=== PATIENT | female | born 1965 | race Caucasian/White ===

== ENCOUNTER → 2020-08-10 | Outpatient (CLI) | payer OTHER ==
--- NOTE | 2020-08-10 12:54 | Diagnostic Imaging Report ---
Bilateral fingers Indication: Bilateral thumb pain 3 views of each thumb were obtained. There are no prior studies available for comparison. There is no fracture, dislocation or acute bony abnormality evident. The osseous structures seen well mineralized and there is no significant degenerative disease of the metacarpophalangeal or the interphalangeal joints of the thumb. There is mild degenerative disease of the triscaphe joints and the radiocarpal joints. The soft tissues are unremarkable. IMPRESSION: 1. There is no evidence for an acute bony abnormality. 2. There does not appear to be any significant arthritic change involving the thumbs. There is mild degenerative disease of the triscaphe and radiocarpal joints however. Dictated by: Dictated on workstation # [id number]
== END ==
LOC: RAD FS 08:32
PROVIDERS: ATTEND Nurse Practitioner
DX: M79.644 Pain in right finger(s) (principal); M79.645 Pain in left finger(s)

== ENCOUNTER 2021-01-31 21:27 | Emergency (ER) | payer OTHER ==
[~2021-01-31] VITALS: Ht 162.6 cm; Wt 79.4 kg
[2021-01-31 21:40] VITALS: BP 156/77
--- NOTE | 2021-01-31 21:49 | ED Lower Extremity ---
General Chief Complaint: Lower Extremity Stated Complaint: LEFT FOOT INJ Nursing Triage Note: PT AMBULATE TO ROOM FS05 WITH C/O LEFT TOE PAIN AFTER STUBBING TOE AT HOME. PT STATES TOES ARE "POINTING IN THE WRONG DIRECTION". Nursing Sepsis Screen: No Definite Risk Source: patient History of Present Illness Date Seen by Provider: January 31, 2021 Time Seen by Provider: 21:30 Initial Comments 55-year-old female presenting with complaints of left foot and pinky toe pain. She had stubbed her foot and toe against a corn hole board just prior to arrival. She has pain especially in the toe but in the middle of her foot as well. She feels that her pinky toe is angled out more than usual. She denies any numbness or tingling. She is able to walk on the foot but it is painful. She has not taken anything for pain prior to arrival. She denies any other injuries. Onset: just prior to arrival Severity: moderate Pain/Injury Location: left foot, left 5th toe Method of Injury: direct blow (Stubbed foot and toe) Modifying Factors: Worse With Movement Allergies and Home Medications Allergies Coded Allergies: No Known Drug Allergies (Unverified , 01/31/21) Home Medications Hydrocodone/Acetaminophen 1 Each Tablet, 1 TAB PO Q6H PRN for PAIN-SEVERE (8-10) Prescribed by: HERIBERTO PRETTY on 01/31/21 2651 Patient Home Medication List Home Medication List Reviewed: Yes Review of Systems Constitutional: No chills, No fever EENTM: no symptoms reported Respiratory: no symptoms reported Cardiovascular: no symptoms reported Gastrointestinal: no symptoms reported Genitourinary: no symptoms reported Musculoskeletal: see HPI, joint pain (left pinky toe) Skin: No change in color Psychiatric/Neurological: Denies Numbness, Denies Paresthesia Past Nucuipn-Bgzsvd-Hwyrbo Hx Past Med/Social Hx: Reviewed Nursing Past Med/Soc Hx Patient Social History Recent Infectious Disease Expo: No Past Medical History Respiratory: No Cardiac: Yes Hypertension Neurological: No Genitourinary: No Musculoskeletal: No Endocrine: Yes Hypothyroidsim Psychosocial: Yes Anxiety, Depression Physical Exam Vital Signs Vital Signs - First Documented 01/31/21 21:40 Temp 36.5 Pulse 99 Resp 18 B/P (MAP) 156/77 (103) O2 Delivery Room Air Capillary Refill : Less Than 3 Seconds Height, Weight, BMI Height: '" Weight: lbs. oz. 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 A digital block was performed using 4 mL of 1% plain lidocaine. Patient had good anesthetic effect with this. After anesthetic effect had kicked in the pinky toe was manipulated and moved medially to improve position of the fracture. Visually the alignment appeared improved. Postreduction x-rays were obtained and confirmed improved alignment of the fracture. The toes were chas taped and placed in a postop shoe. Counseled on follow-up and return precautions. Reduction Attempts: 1 Pre-Procedure NV Exam: Yes post joint reduction film: joint reduced Splints: Post Op Shoe Progress/Results/Core Measures Results/Orders My Orders Orders - HERIBERTO PRETTY MD Foot 3 View Left (01/31/21 21:42) Ice: Apply To Affected Area (01/31/21 21:43) Elevate Affected Extremity (01/31/21 21:43) Lidocaine 1% Inj 20 Ml (Xylocaine 1% Inj (01/31/21 22:06) Ed Ortho/Other Supplies Order (01/31/21 22:06) Orthopedic Equiment (01/31/21 22:06) Toe(S) (01/31/21 22:07) Rx-Hydrocodone/Apap 5-325 Mg (Rx-Vicodin (01/31/21 22:30) Vital Signs/I&O 01/31/21 21:40 Temp 36.5 Pulse 99 Resp 18 B/P (MAP) 156/77 (103) O2 Delivery Room Air Blood Pressure Mean: 103 Progress Progress Note #1: Progress Note pt declined pain medicine prior to imaging. Order xrays of left foot and toes to see about fracture or dislocation to explain her angluated little toe Progress Note #2: Progress Note X-rays to confirm a fracture of the proximal phalanx of the left pinky toe. Patient verbally consented for reduction of the fracture. She tolerated this well and had improved alignment after the procedure. Placed in a postop shoe and the toes were chas taped. Treat for severe pain with hydrocodone and counseled on follow-up and return precautions. Diagnostic Imaging Diagonstic Imaging: Xray Plain Films/CT/US/NM/MRI: other (foot) Comments [facility], [place] NAME: MIKE ZAVALA [facility] REC#: [id number] PT STATUS: REG ER : 1965 PHYSICIAN: HERIBERTO PRETTY MD ADMIT DATE: 01/31/21/ER FS Draft Date of Exam:01/31/21 FOOT 3 VIEW LEFT INDICATION: Pain FINDINGS: There is a slightly displaced fracture involving the proximal phalanx of the left 5th toe. There is no other fracture or dislocation. Soft tissues are unremarkable. IMPRESSION: Slightly displaced fracture involving the proximal phalanx of the left 5th toe. Dictated on workstation # [id number] Dict: 01/31/212151 Trans: 01/31/212154 [facility] [id number] Interpreted by: CLYDE CHAPA MD Electronically signed by: Reviewed: Reviewed by Me Diagonstic Imaging: Xray Plain Films/CT/US/NM/MRI: other (Postreduction films of the toe) Comments Improved alignment of the proximal phalanx fracture of the left pinky toe based on my interpretation of the 2 views of the left pinky toe Reviewed: Reviewed by Me Departure Impression Primary Impression: Displaced fracture of proximal phalanx of left lesser toe(s), initial encounter for closed fracture Disposition: 01 HOME, SELF-CARE Condition: Stable Departure-Patient Inst. Decision time for Depature: 22:33 Referrals: NO,LOCAL PHYSICIAN (PCP/Family) Primary Care Physician Patient Instructions: Toe Fracture ED Add. Discharge Instructions: Chas tape toes together to help keep it stabilized. Use Orthopedic shoe to help limit movement of toes. Follow up with clinic and they may have you see Orthopedics or Podiatry if having continued problems All discharge instructions reviewed with patient and/or family. Voiced understanding. Scripts Hydrocodone/Acetaminophen (Hydrocodone-Acetamin 5-325 mg) 1 Each Tablet 1 TAB PO Q6H PRN for PAIN-SEVERE (8-10) for 5 Days, #20 TAB 0 Refills Prov: HERIBERTO PRETTY MD 01/31/21 Work/School Note: Work Release Form Date Seen in the Emergency Department: January 31, 2021 Return to Work: Feb 02, 2021 Other Restrictions Listed Below: Wear Orthopedic shoe and chas tape toes x 4-6 weeks HERIBERTO PRETTY MD January 31, 2021 21:49
--- NOTE | 2021-01-31 21:55 | Diagnostic Imaging Report ---
INDICATION: Pain FINDINGS: There is a slightly displaced fracture involving the proximal phalanx of the left 5th toe. There is no other fracture or dislocation. Soft tissues are unremarkable. IMPRESSION: Slightly displaced fracture involving the proximal phalanx of the left 5th toe. Dictated by: Dictated on workstation # [id number]
[2021-01-31] MEDS ORDERED: LIDOCAINE 1% INJ 20 ML 20 ML VIAL INJ STA (22:06)
[2021-01-31] MEDS ORDERED: ACHD5005 PO (22:32)
--- NOTE | 2021-02-01 07:07 | Diagnostic Imaging Report ---
INDICATION: Fracture follow-up. COMPARISON: Left foot radiographs from earlier same day. FINDINGS: Two views of the toes show improved alignment of the 5th proximal phalanx fracture status post reduction. The spiral type fracture in the mid diaphysis of the 5th proximal phalanx has diastases of approximately 2 mm. No residual angulation. IMPRESSION: Improved alignment of the 5th proximal phalanx diaphyseal fracture status post reduction. Dictated by: Dictated on workstation # [id number]
== END 2021-01-31 22:37 | disposition home or self-care (01) ==
LOC: EDUNIT# 21:27 → ER FS 21:28
DX: S92.512A Displaced fracture of proximal phalanx of left lesser toe(s), initial encounter for closed fracture (principal); I10 Essential (primary) hypertension; W22.8XXA Striking against or struck by other objects, initial encounter; Y92.009 Unspecified place in unspecified non-institutional (private) residence as the place of occurrence of the external cause
CPT/HCPCS: 64450; 73630; 73660

== ENCOUNTER 2021-12-04 12:33 | Emergency (ER) | payer OTHER ==
[~2021-12-04] VITALS: Ht 162.6 cm; Wt 89.0 kg
[~2021-12-04 12:33] MED LIST: ACHD5005 PO
--- NOTE | 2021-12-04 12:40 | ED General ---
General Chief Complaint: Dizziness/Syncope Stated Complaint: DIZZINESS Source of Information: Patient History of Present Illness Date Seen by Provider: Dec 04, 2021 Time Seen by Provider: 12:36 Initial Comments 56-year-old female presenting with complaints of dizziness and lightheadedness that was worse today. She states she has had some dizziness during the week. She has not been urinating as much this last week. She has had diarrhea this week. She had gone to dinner with her last night and did have 1 beer. She states that when she goes to stand up and turn her head she gets very dizzy and feels like the room is spinning. Just laying on the bed she does not feel dizzy. She feels fullness in her ears and sinuses. She denies fever, chills, nausea, vomiting, abdominal pain, blood in her urine. She does have some discomfort with urination. Timing/Duration: 1 Week (Intermittently over the last week but more consistent since waking up this morning.) Severity: Moderate Modifying Factors: worse with Movement (standing and turning head) Associated Systoms: No Chest Pain, No Cough, No Diaphoresis, No Fever/Chills, No Headaches, No Loss of Appetite, No Malaise, No Nausea/Vomiting, No Rash, No Seizure, No Shortness of Air, No Syncope, No Weakness Allergies and Home Medications Allergies Coded Allergies: No Known Drug Allergies (Unverified , 01/31/21) Patient Home Medication List Home Medication List Reviewed: Yes Amoxicillin/Potassium Clav (Amox Tr-K Clv 875-125 mg Tab) 1 Each Tablet, 1 EACH PO BID Prescribed by: HERIBERTO PRETTY on 12/04/21 1430 Hydrocodone/Acetaminophen (Hydrocodone-Acetamin 5-325 mg) 1 Each Tablet, 1 TAB PO Q6H PRN for PAIN-SEVERE (8-10) Prescribed by: HERIBERTO PRETTY on 01/31/21 2233 Review of Systems Review of Systems Constitutional: No chills; dizziness (with ); No fever EENTM: see HPI, other (plugged sensation in ears and sinus pressure in maxillary sinuses); No ear discharge, No hearing loss, No ear pain, No blurred vision, No double vision, No eye pain, No vision loss, No hoarseness, No epistaxis, No nose congestion Respiratory: no symptoms reported Cardiovascular: no symptoms reported Gastrointestinal: see HPI Genitourinary: see HPI, decreased output, dysuria Musculoskeletal: no symptoms reported Skin: No rash Psychiatric/Neurological: Denies Headache, Denies Numbness, Denies Paresthesia Hematologic/Lymphatic: Denies Blood Clots Past Qowllpg-Dwcgpk-Uzcbxy Hx Patient Social History Tobacco Use?: No Use of E-Cig and/or Vaping dev: No Substance use?: No Alcohol Use?: Yes Alcohol Frequency: Rarely Seasonal Allergies Seasonal Allergies: No Past Medical History Surgery/Hospitalization HX: Hypothyroid, Hypertension, Depression, Anxiety, Insomnia Surgeries: Yes (PARTIAL THYROIDECTOMY) Hysterectomy, Tonsillectomy Respiratory: No Cardiac: Yes Hypertension Neurological: No Genitourinary: No Gastrointestinal: No Musculoskeletal: No Endocrine: Yes Hypothyroidsim HEENT: No Cancer: No Psychosocial: Yes Anxiety, Depression Integumentary: No Blood Disorders: No Physical Exam Vital Signs Vital Signs - First Documented 12/04/21 12/04/21 12:40 14:47 Temp 35.6 Pulse 91 Resp 14 B/P (MAP) 121/75 (90) Pulse Ox 100 O2 Delivery Room Air Capillary Refill : Height, Weight, BMI Height: '" Weight: lbs. oz. kg; 30.00 BMI Method: General Appearance: No Apparent Distress, WD/WN HEENT: PERRL/EOMI, Pharynx Normal, Moist Mucous Membranes; No Photophobia; Other (mild fluid behind TM bilaterally. No Bustamante sign, No raccoon sign, No CSF otorrhea, rhinorrhea. Tender to palpation over maxillary sinuses) Neck: Full Range of Motion, Normal Inspection, Non Tender, Supple Respiratory: Chest Non Tender, Lungs Clear, Normal Breath Sounds, No Accessory Muscle Use, No Respiratory Distress Cardiovascular: Regular Rate, Rhythm, No Murmur, Normal Peripheral Pulses Gastrointestinal: Normal Bowel Sounds, No Pulsatile Mass, Non Tender, Soft Rectal: Deferred Back: No CVA Tenderness, No Vertebral Tenderness Extremity: Normal Capillary Refill, Normal Inspection, No Pedal Edema Neurologic/Psychiatric: Alert, Oriented x3, No Motor/Sensory Deficits, Normal Mood/Affect, 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 Norm as Tested Skin: Normal Color, Warm/Dry Progress/Results/Core Measures Suspected Sepsis SIRS Temperature: Pulse: Respiratory Rate: Laboratory Tests 12/04/21 13:23: White Blood Count 6.6 Blood Pressure / Mean: Laboratory Tests 12/04/21 13:23: Creatinine 0.61, Platelet Count 230, Total Bilirubin 0.2 Results/Orders Lab Results Laboratory Tests Test 12/04/21 12:40 12/04/21 13:23 Range/Units Urine Color YELLOW Urine Clarity CLEAR Urine pH 6.0 5-9 Urine Specific [place] >=1.030 1.016-1.022 Urine Protein NEGATIVE NEGATIVE Urine Glucose (UA) NEGATIVE NEGATIVE Urine Ketones NEGATIVE NEGATIVE Urine Nitrite NEGATIVE NEGATIVE Urine Bilirubin NEGATIVE NEGATIVE Urine Urobilinogen 0.2 < = 1.0 MG/DL Urine Leukocyte Esterase NEGATIVE NEGATIVE Urine RBC (Auto) TRACE-I H NEGATIVE Urine RBC 5-10 H /HPF Urine WBC 2-5 /HPF Urine Squamous Epithelial Cells 10-25 H /HPF Urine Crystals NONE /LPF Urine Bacteria TRACE /HPF Urine Casts NONE /LPF Urine Mucus LARGE H /LPF Urine Yeast FEW H /HPF Urine Culture Indicated NO White Blood Count 6.6 4.3-11.0 10^3/uL Red Blood Count 4.61 3.80-5.11 10^6/uL Hemoglobin 14.4 11.5-16.0 g/dL Hematocrit 42 35-52 % Mean Corpuscular Volume 91 80-99 fL Mean Corpuscular Hemoglobin 31 25-34 pg Mean Corpuscular Hemoglobin Concent 34 32-36 g/dL Red Cell Distribution Width 12.5 10.0-14.5 % Platelet Count 230 130-400 10^3/uL Mean Platelet Volume 10.4 9.0-12.2 fL Immature Granulocyte % (Auto) 0 % Neutrophils (%) (Auto) 62 42-75 % Lymphocytes (%) (Auto) 30 12-44 % Monocytes (%) (Auto) 5 0-12 % Eosinophils (%) (Auto) 2 0-10 % Basophils (%) (Auto) 1 0-10 % Neutrophils # (Auto) 4.1 1.8-7.8 10^3/uL Lymphocytes # (Auto) 2.0 1.0-4.0 10^3/uL Monocytes # (Auto) 0.4 0.0-1.0 10^3/uL Eosinophils # (Auto) 0.1 0.0-0.3 10^3/uL Basophils # (Auto) 0.1 0.0-0.1 10^3/uL Immature Granulocyte # (Auto) 0.0 0.0-0.1 10^3/uL Sodium Level 138 135-145 MMOL/L Potassium Level 4.1 3.6-5.0 MMOL/L Chloride Level 105 98-107 MMOL/L Carbon Dioxide Level 21 21-32 MMOL/L Anion Gap 12 5-14 MMOL/L Blood Urea Nitrogen 16 7-18 MG/DL Creatinine 0.61 0.60-1.30 MG/DL Estimat Glomerular Filtration Rate 105 BUN/Creatinine Ratio 26 Glucose Level 148 H 70-105 MG/DL Calcium Level 8.7 8.5-10.1 MG/DL Corrected Calcium 8.7 8.5-10.1 MG/DL Magnesium Level 1.9 1.6-2.4 MG/DL Total Bilirubin 0.2 0.1-1.0 MG/DL Aspartate Amino Transf (AST/SGOT) 15 5-34 U/L Alanine Aminotransferase (ALT/SGPT) 17 0-55 U/L Alkaline Phosphatase 72 40-136 U/L Total Protein 6.4 6.4-8.2 GM/DL Albumin 4.0 3.2-4.5 GM/DL Lipase 36 8-78 U/L My Orders Orders - HERIBERTO PRETTY MD Ua Culture If Indicated (12/04/21 12:38) Comprehensive Metabolic Panel (12/04/21 12:50) Lipase (12/04/21 12:50) Ed Iv/Invasive Line Start (12/04/21 12:50) Cbc With Automated Diff (12/04/21 12:50) Magnesium (12/04/21 12:50) Ct Head/Sinuses Wo (12/04/21 12:50) Ns Iv 1000 Ml (Sodium Chloride 0.9%) (12/04/21 12:54) Ceftriaxone 1 Gm Pre-Mix (Rocephin 1 Gm (12/04/21 14:19) Vital Signs/I&O 12/04/21 12/04/21 12/04/21 12:40 13:25 14:47 Temp 35.6 Pulse 91 80 86 84 89 Resp 14 15 B/P (MAP) 121/75 (90) 114/48 (70) 137/75 109/68 (82) 115/63 (80) Pulse Ox 100 O2 Delivery Room Air Room Air Capillary Refill : Progress Note #1: Progress Note Obtain labs and urinalysis. Orthostatic vital signs. Administer IV fluids 1 L normal saline for hydration. CT scan of the head and sinuses to evaluate for mass versus sinusitis versus otitis media. Differential diagnosis includes electrolyte imbalance, dehydration, UTI, sinusitis, vertigo, otitis media, brain mass Progress Note #2: Progress Note Urinalysis shows some dehydration with elevated specific gravity. The CBC does not show acute significant normality. Her orthostatic vital signs were stable. Her CT scan did show signs of pansinusitis. Awaiting chemistry panel and recheck after IV fluids and infused to see what her symptoms were like. Progress Note #3: Progress Note Chemistry was stable without acute significant abnormality to account for her symptoms. Treat for pansinusitis and follow up with clinic for continued concerns. Encourage fluids and hydration. Pt reported improvement in dizziness with standing as she walked to bathroom prior to antibiotics and discharge. Diagnostic Imaging Diagonstic Imaging: CT Plain Films/CT/US/NM/MRI: facial bones, head Comments [facility], [place] NAME: MIKE ZAVALA [facility] REC#: [id number] PT STATUS: REG ER : 1965 PHYSICIAN: HERIBERTO PRETTY MD ADMIT DATE: 12/04/21/ER FS Draft Date of Exam:12/04/21 CT HEAD/SINUSES WO PROCEDURE: CT head without contrast and CT sinuses with contrast. TECHNIQUE: Routine noncontrast CT images were obtained through the head and sinuses. Coronal reformats of the sinuses were also performed and reviewed. Auto Exposure Controls were utilized during the CT exam to meet ALARA standards for radiation dose reduction. INDICATION: Headache and dizziness with sinus pain and pressure. COMPARISON: None. DISCUSSION: No acute intracranial hemorrhage, mass, midline shift, or hydrocephalus. The ventricles and sulci are normal in size and configuration for age. The mastoid air cells are well-aerated. The orbits appear symmetrical. The calvarium is intact. There is moderate mucosal thickening within the inferior right maxillary sinus. Trace mucosal thickening within the left maxillary sinus. Mild mucosal thickening within the bilateral ethmoid air cells. The frontal sinuses and sphenoid sinuses are well-aerated. The bilateral ostiomeatal units are widely patent. The right sphenoid ostia is patent. The left is occluded with thickened mucosa. No air-fluid level. No acute osseous abnormality. Facial soft tissues are unremarkable. IMPRESSION: 1. Mild pansinusitis as described. No air-fluid level. 2. No acute intracranial abnormality identified. Dictated on workstation # [id number] Dict: 12/04/21 1315 Trans: 12/04/21 1324 [id number] Interpreted by: PAUL JOSEPH MD Electronically signed by: Reviewed: Reviewed by Me Departure Impression Primary Impression: Dehydration Additional Impressions: Dizziness Acute pansinusitis Qualified Codes: J01.40 - Acute pansinusitis, unspecified Disposition: HOME, SELF-CARE Condition: Stable Departure-Patient Inst. Decision time for Depature: 14:27 Referrals: HARSH JEFFERSON DO (PCP) Primary Care Physician Patient Instructions: Dehydration, Adult ED, Sinusitis, Adult ED, Dizziness, Adult ED Add. Discharge Instructions: Stay well hydrated and make sure to drink plenty of water and electrolyte drinks. Take the full course of antibiotics to treat for sinusitis. Take a probiotic to help replace and build up the good bacteria in your gut that gets killed off with the antibiotics. This can help limit the diarrhea side effect of the antibiotics as well. Check back with clinic if not improving or having more concerns. All discharge instructions reviewed with patient and/or family. Voiced understanding. Scripts Amoxicillin/Potassium Clav (Amox Tr-K Clv 875-125 mg Tab) 1 Each Tablet 1 EACH PO BID for Pansinusitis for 10 Days, #20 TAB 0 Refills Prov: HERIBERTO PRETTY MD 12/04/21 HERIBERTO PRETTY MD Dec 04, 2021 12:40
[2021-12-04 12:43] LABS: BILIRUBIN,URINE NEGATIVE (NEGATIVE); CLARITY,URINE CLEAR; COLOR,URINE YELLOW; GLUCOSE, URINE (UA) NEGATIVE (NEGATIVE); KETONES,URINE NEGATIVE (NEGATIVE); LEUKOCYTE ESTERASE ,URINE NEGATIVE (NEGATIVE); NITRITE,URINE NEGATIVE (NEGATIVE); PROTEIN,URINE NEGATIVE (NEGATIVE)
[2021-12-04 12:49] LABS: BACTERIA,URINE TRACE /HPF; YEAST,URINE FEW /HPF
[2021-12-04] MEDS ORDERED: NS IV 1000 ML 1,000 ML IV STA (12:54)
--- NOTE | 2021-12-04 13:24 | Diagnostic Imaging Report ---
PROCEDURE: CT head without contrast and CT sinuses with contrast. TECHNIQUE: Routine noncontrast CT images were obtained through the head and sinuses. Coronal reformats of the sinuses were also performed and reviewed. Auto Exposure Controls were utilized during the CT exam to meet ALARA standards for radiation dose reduction. INDICATION: Headache and dizziness with sinus pain and pressure. COMPARISON: None. DISCUSSION: No acute intracranial hemorrhage, mass, midline shift, or hydrocephalus. The ventricles and sulci are normal in size and configuration for age. The mastoid air cells are well-aerated. The orbits appear symmetrical. The calvarium is intact. There is moderate mucosal thickening within the inferior right maxillary sinus. Trace mucosal thickening within the left maxillary sinus. Mild mucosal thickening within the bilateral ethmoid air cells. The frontal sinuses and sphenoid sinuses are well-aerated. The bilateral ostiomeatal units are widely patent. The right sphenoid ostia is patent. The left is occluded with thickened mucosa. No air-fluid level. No acute osseous abnormality. Facial soft tissues are unremarkable. IMPRESSION: 1. Mild pansinusitis as described. No air-fluid level. 2. No acute intracranial abnormality identified. Dictated by: Dictated on workstation # [id number]
[2021-12-04 13:25] VITALS: BP_SYST 109; BP_SYST 114; BP_SYST 115; BP_DIAS 48; BP_DIAS 63; BP_DIAS 68
[2021-12-04 13:26] LABS: BASOPHILS # (AUTO) 0.1 10^3/uL (0.0-0.1); BASOPHILS % (AUTO) 1 % (0-10); EOSINOPHILS # (AUTO) 0.1 10^3/uL (0.0-0.3); EOSINOPHILS % (AUTO) 2 % (0-10); HEMATOCRIT 42 % (35-52); HEMOGLOBIN 14.4 g/dL (11.5-16.0); LYMPHOCYTES % (AUTO) 30 % (12-44); MEAN CORPUSCULAR HEMOGLOBIN 31 pg (25-34); MEAN CORPUSCULAR HGB CONC 34 g/dL (32-36); MEAN CORPUSCULAR VOLUME 91 fL (80-99); MEAN PLATELET VOLUME 10.4 fL (9.0-12.2); MONOCYTES # (AUTO) 0.4 10^3/uL (0.0-1.0); MONOCYTES % (AUTO) 5 % (0-12); NEUTROPHILS # (AUTO) 4.1 10^3/uL (1.8-7.8); NEUTROPHILS % (AUTO) 62 % (42-75); PLATELET COUNT 230 10^3/uL (130-400); WHITE BLOOD COUNT 6.6 10^3/uL (4.3-11.0)
[2021-12-04 13:48] LABS: BILIRUBIN,TOTAL 0.2 MG/DL (0.1-1.0); CALCIUM 8.7 MG/DL (8.5-10.1); CREATININE SERUM 0.61 MG/DL (0.60-1.30); MAGNESIUM 1.9 MG/DL (1.6-2.4); POTASSIUM 4.1 MMOL/L (3.6-5.0); TOTAL PROTEIN 6.4 GM/DL (6.4-8.2)
[2021-12-04] MEDS ORDERED: cefTRIAXone 1 GM PRE-MIX 50 ML IV STA (14:19)
[2021-12-04] MEDS ORDERED: AMOX1TAB12 PO (14:30)
[2021-12-04 14:47] VITALS: BP 137/75
== END 2021-12-04 14:47 | disposition home or self-care (01) ==
LOC: EDUNIT# 12:33 → ER FS 12:35
DX: E86.0 Dehydration (principal); R42 Dizziness and giddiness; J01.40 Acute pansinusitis, unspecified
CPT/HCPCS: 36415; 70450; 70486; 80053; 81000; 83690; 83735; 85025